=== PATIENT | male | born 1995 | race Caucasian/White ===

== ENCOUNTER 2021-10-19 02:55 | Emergency (ER) | payer SELFPAY ==
[~2021-10-19] VITALS: Ht 188 cm; Wt 81.8 kg
[~2021-10-19 02:55] MED LIST: BACTRIM DS 8001 TAB PO
[2021-10-19 03:15] VITALS: TEMP 98.6
[2021-10-19 04:04] LABS: BASO % 0.3 % (0.0-2.0); EOS % 0.1 % (0.0-4.0); GRAN # 12.4 K/mm3 (1.4-6.5); GRAN % 86.8 % (42.2-75.2); HEMATOCRIT 46.8 % (42.0-52.0); HEMOGLOBIN 16.9 g/dl (13.5-18.0); LYMPH % 6.7 % (20.0-51.0); MEAN CELL VOLUME 93 fl (80.0-100.0); MEAN CORPUSCULAR HEMOGLOBIN 34 pg (27-31); MEAN CORPUSCULAR HGB CONC 36 g/dl (33.0-37.0); MEAN PLATELET VOLUME 9.3 fl (7.4-10.4); MONO # 0.8 K/mm3 (0.1-0.6); MONO % 5.7 % (1.7-9.3); PLATELET COUNT 327 K/mm3 (130-400); RED BLOOD COUNT 5.04 M/mm3 (4.20-5.60)
[2021-10-19 04:46] LABS: ALBUMIN 4.6 gm/dL (3.5-5.0); BILIRUBIN,TOTAL 1.3 mg/dL (0.2-1.2); CALCIUM 9.8 mg/dL (8.4-10.2); POTASSIUM 3.7 mmol/L (3.5-4.5)
[2021-10-19 05:44] VITALS: BP 124/73; PULSE 62
[2021-10-19] MEDS ORDERED: ZOFRAN ODT4 MG PO (05:47)
== END 2021-10-19 05:57 | disposition home or self-care (01) ==
LOC: COL.ER 02:55
PROVIDERS: Personal Emergency Response Attendant
DX: R05.9 Cough, unspecified (principal)
CPT/HCPCS: J1790; J2270; J2405; J7030

== ENCOUNTER 2023-06-01 11:48 | Inpatient (IN) | payer OTHER ==
[2023-06-01] VITALS (10 sets, daily range): BP systolic 121–142; BP diastolic 72–98; PULSE 51–91; TEMP 97.3–98.7
[~2023-06-01] VITALS: Ht 190.5 cm; Wt 79.3 kg
[~2023-06-01 11:48] MED LIST changes: +ZOFRAN ODT4 MG PO
[2023-06-01 12:55] LABS: HEMATOCRIT 50.8 % (42.0-52.0); HEMOGLOBIN 17.8 g/dl (13.5-18.0); MEAN CELL VOLUME 96 fl (80.0-100.0); MEAN CORPUSCULAR HEMOGLOBIN 34 pg (27-31); MEAN CORPUSCULAR HGB CONC 35 g/dl (33.0-37.0); MEAN PLATELET VOLUME 10.4 fl (7.4-10.4); PLATELET COUNT 284 K/mm3 (130-400); REDCELL DISTRIBUTION WIDTH-CV 12.4 % (11.5-14.5)
[2023-06-01 13:49] LABS: ALBUMIN 4.4 gm/dL (3.5-5.0); BILIRUBIN,TOTAL 1.1 mg/dL (0.2-1.2); C-REACTIVE PROTEIN 4.16 mg/dL (0.00-0.50); CALCIUM 9.7 mg/dL (8.4-10.2); CREATININE, serum 0.82 mg/dL (0.72-1.25); POTASSIUM 3.9 mmol/L (3.5-4.5); TOTAL PROTEIN 7.7 gm/dL (6.2-8.1)
[2023-06-01 13:51] LABS: BAND 1 % (0-10); EOSINOPHIL 2 % (0-4); LYMPHOCYTE 7 % (20.0-51.0); NEUTROPHILS 80 % (42.0-75.2); PLATELET ESTIMATE NORMAL (NORMAL)
[2023-06-01 15:46] LABS: COLLECTION METHOD CLEAN CATCH
[2023-06-01 15:53] LABS: URINE APPEARANCE Hazy (CLEAR/HAZY); URINE BLOOD Negative (NEGATIVE); URINE COLOR Yellow (YELLOW); URINE GLUCOSE 1+ (NEGATIVE); URINE KETONE 4+ (NEGATIVE); URINE NITRATE Negative (NEGATIVE); URINE PROTEIN(semi-quant) 1+ (NEGATIVE); URINE UROBILINOGEN 0.2 E.U/dL (0.2-1.0)
[2023-06-01 15:59] LABS: URINE BACTERIA Rare /hpf (NONE SEEN)
[2023-06-01 16:00] LABS: MUCOUS Present (NOT PRESENT); SQUAMOUS EPITHELIAL 0-2 /hpf (0-10); URINE RBC None Seen /hpf (0-2)
--- NOTE | 2023-06-01 19:00 | NUR ---
PT ARRIVED FROM PACU. PT IS SLEEPY BUT IS AXOX4. VSS. PT IS ON TELE SHOWING SINUS ARRYTHMIA. PT AND FAMILY ORIENTED TO UNIT AND FLOOR. PT GIVEN CALL LIGHT AND INSTRUCTED TO CALL WT ALL NEEDS. [id number] CALLED THIS RN WITH REPORT. STATED PT HAD HAD A JUCTIONAL RYTHYM AROUND 1730. AND THAT PT HAD BEEN IN SINUS ARRYTHMIA SINCE. PT HAS NO CARDIAC HISTORY. PT DOES HAVE HX OF VAPING, MARIJUANA, AND ETOH ABUSE. PT STATES HE HAS NOT DRANK IN THREE DAYS. THIS RN NOTIFIED . ORDERS FOR TELE AND HOSPITALIST CONSULT. LEE WARNER NOTIFED OF CONSULT. EKG AND LABS. FAMILY UPDATED.
[2023-06-01] MEDS ORDERED: CELEXA10 MG PO (19:03)
[2023-06-01 19:13] LABS: INR 1.1 (0.8-3.0); PROTHROMBIN TIME 11.8 SECONDS (9.7-12.8)
[2023-06-01 19:16] LABS: PARTIAL THROMBOPLASTIN TIME 32.2 SECONDS (26.0-37.0)
[2023-06-01 19:22] LABS: CALCIUM 8.8 mg/dL (8.4-10.2); CREATININE, serum 0.74 mg/dL (0.72-1.25)
--- NOTE | 2023-06-01 21:02 | NUR ---
Patient assessed at this time, assessed at this time, reports pain isn't too bad, got up to the bathroom and voided fine, banana bag currently infusing on his right hand, restarted IV on left hand for IV Zosyn, has 3 lap sites, band aid CDI, denies chest pain, on CIWA every 2 hours, denies further needs, call light and personal items within reach, will continue to monitor.
[2023-06-01 23:26] LABS: COLLECTION METHOD CLEAN CATCH
[2023-06-01 23:35] LABS: URINE APPEARANCE Clear (CLEAR/HAZY); URINE BLOOD TRACE-INTACT (NEGATIVE); URINE COLOR Yellow (YELLOW); URINE GLUCOSE 2+ (NEGATIVE); URINE KETONE 4+ (NEGATIVE); URINE NITRATE Negative (NEGATIVE); URINE PROTEIN(semi-quant) 1+ (NEGATIVE); URINE UROBILINOGEN 0.2 E.U/dL (0.2-1.0)
[2023-06-01 23:46] LABS: URINE BACTERIA Rare /hpf (NONE SEEN); URINE RBC 0-2 /hpf (0-2)
[2023-06-01 23:57] LABS: TRICYCLIC ANTIDEPRESS URINE NEGATIVE
[2023-06-02] VITALS (12 sets, daily range): BP systolic 104–139; BP diastolic 54–92; PULSE 53–100; TEMP 98.1–100.2
--- NOTE | 2023-06-02 01:11 | NUR ---
Spoken to Delores dwyer/sang patient requested to take melatonin to help him sleep, received an order for melatonin 9mg PRN HS.
--- NOTE | 2023-06-02 05:00 | NUR ---
Patient had 2 episode of emesis, IV zofran given and scored 8 on CIWA, IV ativan given. Patient had loose BM as well, will continue to monitor.
[2023-06-02 05:36] LABS: HEMATOCRIT 45.6 % (42.0-52.0); HEMOGLOBIN 15.9 g/dl (13.5-18.0); MEAN CELL VOLUME 97 fl (80.0-100.0); MEAN CORPUSCULAR HEMOGLOBIN 34 pg (27-31); MEAN CORPUSCULAR HGB CONC 35 g/dl (33.0-37.0); MEAN PLATELET VOLUME 10.3 fl (7.4-10.4); PLATELET COUNT 280 K/mm3 (130-400); RED BLOOD COUNT 4.69 M/mm3 (4.20-5.60); REDCELL DISTRIBUTION WIDTH-CV 12.6 % (11.5-14.5)
[2023-06-02 05:57] LABS: CREATININE, serum 0.78 mg/dL (0.72-1.25); POTASSIUM 3.6 mmol/L (3.5-4.5)
[2023-06-02 06:26] LABS: BAND 10 % (0-10); LYMPHOCYTE 10 % (20.0-51.0); NEUTROPHILS 75 % (42.0-75.2)
[2023-06-02 06:27] LABS: PLATELET ESTIMATE NORMAL (NORMAL)
--- NOTE | 2023-06-02 08:10 | NUR ---
PT RESTING IN BED WITH PAIN 7/10 IN LOWER ABDOMEN. NO PAIN MEDICATION REQUESTED. LAP SITES TO ABDOMEN WITH EDGES WELL APPROX. PT REPORTS N/V AFTER DRINKING TOO MUCH WATER AND HAS HAD 1400 EMESIS THIS AM. PT AMBULATED TO BATHROOM STEADY GAIT FOR A SHOWER. WILL CONTINUE TO MONITOR.
--- NOTE | 2023-06-02 21:03 | NUR ---
Patient assessed at this time, girlfriend at bedside, reports pain at 3/10, medicated with scheduled motrin, denies nausea, still with IV infusing well on left hand, LR at 100cc/hr, denies further needs, call light and personal item within reach, will continue to monitor.
--- NOTE | 2023-06-02 21:58 | NUR ---
Patient had 350 emesis, called [facility] and received an order for phenergan, will continue to monitor.
[2023-06-03] VITALS (13 sets, daily range): BP systolic 100–144; BP diastolic 64–84; PULSE 54–88; TEMP 98.1–98.7
--- NOTE | 2023-06-03 02:42 | NUR ---
Patient CIWA score at 9 at this time, ativan IV given, sweating and still has intermittent nausea/vomiting, will continue to monitor.
--- NOTE | 2023-06-03 06:32 | NUR ---
Patient reports nausea is a lot better, no sweat noted, will continue to monitor.
[2023-06-03 07:41] LABS: BASO % 0.1 % (0.0-2.0); EOS % 0.3 % (0.0-4.0); GRAN % 77.1 % (42.2-75.2); HEMATOCRIT 41.9 % (42.0-52.0); HEMOGLOBIN 14.8 g/dl (13.5-18.0); LYMPH # 1.1 K/mm3 (1.2-3.4); LYMPH % 9.4 % (20.0-51.0); MEAN CELL VOLUME 96 fl (80.0-100.0); MEAN CORPUSCULAR HEMOGLOBIN 34 pg (27-31); MEAN CORPUSCULAR HGB CONC 35 g/dl (33.0-37.0); MONO # 1.5 K/mm3 (0.1-0.6); MONO % 12.7 % (1.7-9.3); PLATELET COUNT 242 K/mm3 (130-400); RED BLOOD COUNT 4.36 M/mm3 (4.20-5.60); REDCELL DISTRIBUTION WIDTH-CV 12.5 % (11.5-14.5)
[2023-06-03 07:57] LABS: CALCIUM 8.8 mg/dL (8.4-10.2); CREATININE, serum 0.76 mg/dL (0.72-1.25); POTASSIUM 3.2 mmol/L (3.5-4.5)
--- NOTE | 2023-06-03 08:51 | NUR ---
PT RESTING IN BED. NAUSEA RESOLVING. CIWA SCORE 1 . PROVIDED APPLE JUICE PER PT REQUEST. LAP SITES CDI WAYLON. PT IS A/O X4. IV TO . IV ABX.
--- NOTE | 2023-06-03 10:53 | NUR ---
SW met with pt to complete intake. Pt lives in [place] and is independent with ADLS and does not use any DME. FRANCINE is his father, Dontrell @ [phone]. Pt has a girlfriend and gets medications from [facility]. No DPOA-HC at this time. No other needs at this time. SW await further recommendations and follow up as needed. D/C: Home.
--- NOTE | 2023-06-03 20:19 | NUR ---
Patient in good spirits, parents just left, girlfriend at bedside, had just done ambulating the halls, reports nausea is a lot better and has not throwing up since he had zofran at 1500, 3 lap sites to abdomen CDI bandaid, reports pain at 2/10, medicated with scheduled motrin, denies further needs, call light and personal items within reach, will continue to monitor.
[2023-06-04 01:51] VITALS: BP 152/89; PULSE 81; TEMP 99.1
[2023-06-04 03:35] VITALS: BP 126/75; PULSE 83; TEMP 99.2
[2023-06-04 04:53] VITALS: BP_SYST 126
[2023-06-04 05:56] VITALS: BP 112/76; PULSE 69; TEMP 98.6
[2023-06-04 07:15] LABS: CREATININE, serum 0.73 mg/dL (0.72-1.25); MAGNESIUM 1.8 mg/dL (1.6-2.6); POTASSIUM 3.5 mmol/L (3.5-4.5)
[2023-06-04 07:58] VITALS: BP 121/70; PULSE 74; TEMP 98.2
[2023-06-04] MEDS ORDERED: AMOXICILLIN 8751 TAB PO (08:45)
[2023-06-04] MEDS ORDERED: NORCO 325 MG-51 TAB PO (08:45)
[2023-06-04 09:13] VITALS: BP_SYST 121
--- NOTE | 2023-06-04 09:30 | NUR ---
Reviewed discharge instructions with pt to include prescriptions and follow up appointment. Pt verbalized understanding. Pt reports minimal to no pain. INT removed in right forearm and left hand. Pt requested to walk out when a wheelchair was offered. Pt did well and left with his father
--- NOTE | 2023-06-04 10:04 | NUR ---
flavor room worker met with patient to discuss discharge planning. Patient does not have a PCP, JARED provided list of options in the [place] area. Patient chose [facility], JARED notified loading unit tool setterLawrence green, whom notified the new patient coordinator at [facility]. [facility] will be contacting the patient to schedule appointment. Discharge Plan: Home
== END 2023-06-04 09:30 | disposition home or self-care (01) | DRG 398 ==
LOC: COL.ER 11:48 → SURG 17:09
PROVIDERS: Internal Medicine; Nurse Practitioner; Nurse Practitioner Family; ADMIT Surgery
PROC: 0DTJ4ZZ Resection of Appendix, Percutaneous Endoscopic Approach (ICD-10-PCS; principal; 2023-06-01 15:45)
DX: K35.891 Other acute appendicitis without perforation, with gangrene (principal); F10.939 Alcohol use, unspecified with withdrawal, unspecified; R73.9 Hyperglycemia, unspecified; F32.A Depression, unspecified; F41.9 Anxiety disorder, unspecified; I49.8 Other specified cardiac arrhythmias; F10.90 Alcohol use, unspecified, uncomplicated; K29.70 Gastritis, unspecified, without bleeding; F17.210 Nicotine dependence, cigarettes, uncomplicated; R11.2 Nausea with vomiting, unspecified; R00.0 Tachycardia, unspecified; I10 Essential (primary) hypertension
CPT/HCPCS: A9284; G0378; J0360; J0690; J1100; J1836; J2060; J2405; J2543; J2550; J2704; J3010; J3411; J7030; J7120; Q9967